=== PATIENT | female | born 1995 | race Caucasian/White ===

== ENCOUNTER 2020-11-27 09:45 | Emergency (ER) | payer MEDICAID ==
[~2020-11-27] VITALS: Ht 160 cm; Wt 69.0 kg
[2020-11-27 10:43] LABS: *AMPHETAMINES SCREEN URINE NEGATIVE (NEGATIVE); *BARBITURATES SCREEN URINE NEGATIVE (NEGATIVE)
[2020-11-27 10:44] LABS: *BENZODIAZEPINES SCREEN URINE NEGATIVE (NEGATIVE); *COCAINE SCREEN URINE NEGATIVE (NEGATIVE); METHADONE URINE SCREEN NEGATIVE (NEGATIVE); OPIATES URINE SCREEN NEGATIVE (NEGATIVE); PHENCYCLIDINE URINE SCREEN NEGATIVE (NEGATIVE)
[2020-11-27 10:48] LABS: CANNABINOID URINE SCREEN PRESUMTIVE POSITIVE (NEGATIVE)
[2020-11-27] MEDS ORDERED: TRAMADOL 50MG TABLET PO ONE (13:30)
[2020-11-27 13:35] VITALS: BP 120/78
== END 2020-11-27 13:36 | disposition home or self-care (01) ==
LOC: ER 10:11
DX: S02.842A Fracture of lateral orbital wall, left side, initial encounter for closed fracture (principal); S02.40FA Zygomatic fracture, left side, initial encounter for closed fracture; R03.0 Elevated blood-pressure reading, without diagnosis of hypertension; W01.198A Fall on same level from slipping, tripping and stumbling with subsequent striking against other object, initial encounter; Y93.89 Activity, other specified; Y92.89 Other specified places as the place of occurrence of the external cause
CPT/HCPCS: 70486; 80305; 99285